=== PATIENT | female | born 1985 | race Caucasian/White ===

== ENCOUNTER → 2018-07-10 | Outpatient (CLI) | payer BC ==
[2018-07-10 11:00] LABS: Basophils # (A) 0.1 k/uL (0-0.2); Basophils % (A) 1 %; Eosinophils # (A) 0.2 k/uL (0-0.7); Eosinophils % (A) 2 %; HCT 36.2 % (34.0-46.0); HGB 11.3 gm/dL (11.4-16.0); Hypochromasia Moderate; Lymphocytes # (A) 2.3 k/uL (1.0-4.8); Lymphocytes % (A) 23 %; MCH 23.1 pg (25.0-35.0); MCHC 31.1 g/dL (31.0-37.0); Mean Platelet Volume 6.8; Microcytosis Slight; Monocytes # (A) 0.3 k/uL (0-1.0); Monocytes % (A) 3 %; Neutrophils # (A) 7.2 k/uL (1.3-7.7); Neutrophils % (A) 71 %; Platelet Count 359 k/uL (150-450); RBC 4.89 m/uL (3.80-5.40); RDW 15.5 % (11.5-15.5); WBC 10.1 k/uL (3.8-10.6)
== END | disposition home or self-care (01) ==
LOC: LABPAT 10:09
PROVIDERS: ATTEND Obstetrics & Gynecology Obstetrics
DX: Z01.812 Encounter for preprocedural laboratory examination (principal); N92.0 Excessive and frequent menstruation with regular cycle
CPT/HCPCS: 36415; 85025

== ENCOUNTER → 2018-07-18 | Day surgery (SDC) | payer BC ==
[2018-07-13 11:32] VITALS: BMI 39.6
[~2018-07-18] MED LIST: DEXAMETHASONE SOD PHOSPHATE 10 MG/ML 1 ML VIAL IV ONE; HYDROmorphone 0.5 MG/0.5 ML SYRINGE IVP PRN; KETOROLAC 30 MG/ML 1 ML VIAL IVP ONE; LACTATED RINGERS 1,000 ML IV ONE; LACTATED RINGERS 1,000 ML IV SCH; LIDOCAINE 1% 20 ML VIAL (10MG/ML) FOR IV START INTRADERMA ONE; LIDOCAINE 1% INJ 10MG/ML (20 ML MDV) ONE; MIDAZOLAM (PF) 2 MG/2 ML VIAL IV PRN; MIDAZOLAM 2 MG/2 ML VIAL ONE; ONDANSETRON 4 MG/2 ML VIAL IVP ONE; PROPOFOL 10 MG/ML 20 ML VIAL IV ONE; Pre Op ABX Message 1 EACH MISC MISCELLANE ONE; SCOPOLAMINE 1.5MG/72HR PATCH TRANSDERM ONE; fentaNYL (PF) 50 MCG/ML 2 ML AMP ONE
--- NOTE | 2018-07-18 13:24 | P.OP ---
Date of Procedure: 07/18/18 Preoperative Diagnosis: Menorrhagia, failed medical management. Anemia Postoperative Diagnosis: Same Procedure(s) Performed: Hysteroscopy, dilation and curettage, and ablation with NovaSure. Anesthesia: MAC Surgeon: Paula Ayala Estimated Blood Loss (ml): 5 IV fluids (ml): 400 Urine output (ml): 200 Pathology: other (Endometrial curettings) Condition: stable Indications for Procedure: Heavy menstrual bleeding Operative Findings: Normal-appearing and endometrial cavity, length of 6, width of 3.7, power for the procedure 122 for a total 45 seconds. Description of Procedure: Patient seen in the preoperative area and informed consent is obtained. Given that she has failed medical management she wishes to proceed. Patient was taken operating suite where general anesthesia was obtained without difficulty by the anesthesia department. She was then prepped and draped in the normal sterile fashion in the dorsal lithotomy position. A right upper catheter was then used to drain the bladder of clear yellow urine. A weighted speculum was placed in the posterior vaginal vault the anterior lip of the cervix is visualized and grasped with a single-tooth tenaculum. Endocervical canal was then dilated to 16-Spanish. Hysteroscope was placed through the cervix and toward the endometrium Cavity was noted a proliferative endometrium was visualized. Hysteroscope was removed and sharp curettage was performed the specimen was then sent to pathology for analysis. The NovaSure device was then opened and operated according to bus driver's instruction. After the cavity assessment was completed the cycle was allowed to occur at a power of 122 for a total of 45 seconds. Afterwards the device was removed without difficulty the single tooth tenaculum was taken off of the anterior lip of the cervix and hemostasis was appreciated. All counts were correct 2 patient tolerated procedure well was taken the recovery room awake and in stable condition.
[2018-07-18 13:42] VITALS: TEMP 98
[2018-07-18 14:54] VITALS: PULSE 58; RESP 18
[2018-07-18 15:12] VITALS: BP 116/84
== END | disposition home or self-care (01) ==
LOC: OR 11:01
PROVIDERS: ATTEND Obstetrics & Gynecology Obstetrics
DX: N92.0 Excessive and frequent menstruation with regular cycle (principal); N72 Inflammatory disease of cervix uteri; D64.9 Anemia, unspecified; K21.9 Gastro-esophageal reflux disease without esophagitis; Z79.899 Other long term (current) drug therapy; Z79.1 Long term (current) use of non-steroidal anti-inflammatories (NSAID); Z79.890 Hormone replacement therapy; Z98.51 Tubal ligation status; Z91.030 Bee allergy status
CPT/HCPCS: 81025; 88305; 58563; J2250; J1100; J2405; J2001; J3010; J1885; J2704

== ENCOUNTER → 2019-10-16 | Outpatient (CLI) | payer OTHER ==
--- NOTE | 2019-10-16 12:19 | XR ---
EXAMINATION TYPE: AP view pelvis and 2 views left hip XR knee complete 3 views LT, XR ankle complete 3 views LT DATE OF EXAM: 10/16/2019 COMPARISON: NONE HISTORY: 34-year-old female S73.102A S80.02XA S93.402A. Pain after slip and fall. FINDINGS: Pelvis and left hip: There is mild degenerative spurring at the left hip. Small anterior femoral head neck junction osseou s excrescence. No acute fracture, subluxation, or dislocation. Left knee: Minimal marginal spurring medial and patellofemoral compartments. Extensor mechanism is intact. No kn ee joint effusion. No acute fracture, subluxation, or dislocation. Left ankle: Ankle mortise is congruent with preservation of the distal tibia-fibula overlap. Talar dome is intact . Small posterior calcaneal spur. No acute fracture, subluxation, or dislocation. IMPRESSION: 1. Pelvis and left hip: Mild left hip OA. There is a femoral head neck junction osseous excrescence w hich can contribute to CAM-type femoral acetabular impingement syndrome. 2. Left knee: Mild degenerative spurring in the medial and patellofemoral compartments. No acute osse ous abnormality seen. 3. Left ankle: No acute osseous abnormality seen.
== END | disposition home or self-care (01) ==
LOC: RADXRMAIN 11:39
PROVIDERS: ATTEND Emergency Medicine
DX: M16.12 Unilateral primary osteoarthritis, left hip (principal); M17.12 Unilateral primary osteoarthritis, left knee; S93.402A Sprain of unspecified ligament of left ankle, initial encounter
CPT/HCPCS: 73502

== ENCOUNTER → 2019-11-17 | Outpatient (CLI) | payer OTHER ==
--- NOTE | 2019-11-17 11:47 | XR ---
EXAMINATION TYPE: XR lumbar spine 2 or 3V DATE OF EXAM: 11/17/2019 CLINICAL HISTORY: pain TECHNIQUE: Three views of the lumbar spine are submitted. COMPARISON: None. FINDINGS: There are 5 lumbar type vertebral bodies identified. The lumbar spine shows satisfactory alignment w ithout evidence of acute fracture or dislocation. Vertebral body heights are within normal limits. Moderate degenerative disc space narrowing L4-5 and L5-S1. The overlying soft tissue appears unremar kable. IMPRESSION: No acute fracture or dislocation is seen in the lumbar spine. ICD 10 NO FRACTURE, INITIAL EVALUATION
== END | disposition home or self-care (01) ==
LOC: RADXRMAIN 11:19
PROVIDERS: ATTEND Emergency Medicine
DX: M53.3 Sacrococcygeal disorders, not elsewhere classified (principal); S73.102D Unspecified sprain of left hip, subsequent encounter; Z98.890 Other specified postprocedural states
CPT/HCPCS: 72100

== ENCOUNTER → 2022-07-20 | Day surgery (SDC) | payer BC, OTHER ==
--- NOTE | 2022-07-26 10:08 | MM ---
Reason for Exam: Post Procedure Mammogram. Last mammogram was performed 4 year(s) and 3 month(s) ago. Patient History: Bilateral Reduction. Risk Values: Heidi 5 year model risk: 0.3%. NCI Lifetime model risk: 6.7%. Prior Study Comparison: 04/13/2018 Bilateral Screening Mammogram, [facility]. 07/07/2022 Right Diagnostic Ultrasound, [facility]. Tissue Density: Right: The breast tissue is heterogeneously dense. This may lower the sensitivity of mammography. Pathology Description: Location: retroareolar. Marker Left Behind. Needle Type: [place] Cores: 4 Gauge: 12 The procedure of ultrasound guided core biopsy was explained to the patient. Benefits, alternatives, and risks were discussed. An informed consent was then obtained. The patient was placed in supine positioning for imaging and for the procedure. The overlying skin was prepped and draped in usual sterile fashion. Lidocaine buffered with bicarbonate was used as anesthetic into the skin and subcutaneous tissue up to area of concern in the 12:00 periareolar breast. A cara was made with surgical scalpel. Under ultrasound guidance, a 12-gauge vacuum assisted biopsy gun device was used to obtain 4 core samples. Following this, a biopsy clip was left in lesion. The patient tolerated the procedure well without any immediate complication. The patient was kept in the radiology department for short stay after the procedure and then discharged home in stable condition. Postprocedure mammogram: The patient was transferred to mammography for physician ordered post procedure mammogram for clip placement verification. Impression: Successful, uncomplicated ultrasound guided core biopsy of area of concern in the 12:00 periareolar breast breast, full pathology results to follow. Pathology Results: Result: Benign, Fat necrosis. RIGHT BREAST, POSTERIOR NIPPLE, NEEDLE CORE BIOPSY: Calcified fat necrosis/scar with chronic inflammation and hemosiderin laden histiocytes. Negative for malignancy. Overall Assessment: Benign Assessment: MG diagnostic mammo RT wo CAD - Right: Benign, BI-RAD 2. Management: Diagnostic Breast Ultrasound of the right breast in 6 months. Electronically signed and approved by: Chito Mendez M.D. Radiologis
== END ==
LOC: RADUSWWP 07:43
PROVIDERS: ATTEND Surgery
DX: N64.1 Fat necrosis of breast (principal); N61.0 Mastitis without abscess
CPT/HCPCS: 88305; 77065; 19083; A4648

== ENCOUNTER → 2022-08-04 | Outpatient (CLI) | payer OTHER ==
[2022-08-04 08:18] VITALS: BP 127/89; PULSE 73; RESP 16; TEMP 97.6
--- NOTE | 2022-08-04 08:41 | P.GSHP ---
History of Present Illness H&P Date: 08/04/22 Chief Complaint: fat necrosis right breast Marisela is a 37 year old white female seen in consultation for Dr. Morgan regarding a biopsy of the right breast showing calcified fat necrosis and scar. She had an initial ultrasound of the right breast [id number]. This revealed a 2.6 x 2.7 cm hypoechoic solid lesion felt to represent a possible hematoma in the area of palpable abnormality in the breast. This was considered BIRADS 3 and 3 month follow-up was recommended. On she had an ultrasound of the right breast showing a 3.1 x 2.9 cm retroareolar hypoechoic solid nodule. A core biopsy was recommended. This was performed at [facility] on . P athology revealed fat necrosis and scar. No recent radiographs have been done of the left breast. Her last bilateral mammogram was in 2019 prior to a breast reduction. That did not show anything of concern. The patient feels some nodularity in her right breast in the area seen on mammogram since her breast reduction which was in 2019. She is not complaining of any nipple discharge or skin changes. She has not had any recent trauma of the breast. She did have an infection extending from the nipple laterally in the right breast. It was red and swollen. She was treated with antibiotics. She did not have fever or chills. She is not certain as to what initiated the infection. She is doing well at this time with resolution. She does not have sensation in the areolar complex. She was reduced from a size 32H to a 36D now. Caffeine: 1 pop/day; used to drink 4 20OZ bottles /day until last week nicotine: none chocolate: occasional BCP: 5 years, stopped 2014 Family History: maternal grandmother: breast cancer ? stomach cancer and skin cancer maternal uncle, not sure she is adopted Hormonal History: menarche: 10 M1, breast fed: no, age at first : 22 periods irregular LMP: 2 weeks ago Surgical history: tonsil 2 C-sections gallbladder bresat reductioin tubaligation uterine ablation Medical history: diabetic Social History: Nicotine: Negative Alcohol: Occasional Drugs: Negative - Constitutional Constitutional: Denies chills, Denies fever - EENT Eyes: bilateral blurred vision Ears: bilateral: decreased hearing Ears, nose, mouth and throat: Denies headache, Denies sore throat - Breasts Breasts: bilateral: as per HPI - Cardiovascular Cardiovascular: Denies chest pain, Denies shortness of breath - Respiratory Respiratory: Denies cough, Denies 7 - Gastrointestinal Gastrointestinal: Denies abdominal pain, Denies diarrhea, Denies nausea, Denies vomiting - Genitourinary (Female) Genitourinary: Denies dysuria, Denies hematuria - Menstruation Menstruation: Reports as per HPI - Musculoskeletal Musculoskeletal: Reports myalgias - Integumentary Integumentary: Denies pruritus, Denies rash - Neurological Neurological: Denies numbness, Denies weakness - Psychiatric Psychiatric: Reports anxiety, Reports depression - Endocrine Comment: diabetic - Hematologic/Lymphatic Comment: none - Allergic/Immunologic Allergic/Immunologic: Reports seasonal allergies Past Medical History Past Medical History: Diabetes Mellitus, Musculoskeletal Disorder Additional Past Medical History / Comment(s): chronic low & mid back pain, Type 2 DM History of Any Multi-Drug Resistant Organisms: None Reported Past Surgical History: Adenoidectomy, Breast Surgery, Section, Tonsillectomy, Tubal Ligation, Uterine Ablation Additional Past Surgical History / Comment(s): C/S x2. Breast reduction 2019 Past Anesthesia/Blood Transfusion Reactions: No Reported Reaction Past Psychological History: Anxiety Smoking Status: Former smoker Past Alcohol Use History: Occasional Additional Past Alcohol Use History / Comment(s): quit smoking 2004,only smoked for 6 months Past Drug Use History: None Reported - Past Family History Mother Family Medical History: No Reported History Medications and Allergies Home Medications Medication Instructions Recorded Confirmed Type Ibuprofen [Motrin] 800 mg PO Q6H PRN 07/13/18 08/04/22 History ALPRAZolam [Xanax] 0.25 mg PO DAILY PRN 07/09/22 08/04/22 History Cyclobenzaprine [Flexeril] 10 mg PO HS 07/09/22 08/04/22 History Dulaglutide [Trulicity] 3 ml SQ WEEKLY 07/09/22 08/04/22 History INSULIN LISPRO (humaLOG) [humaLOG] 10 units SQ TID 07/12/22 08/04/22 History Insulin Glargine [Lantus Vial] 25 unit SQ DAILY 07/12/22 08/04/22 History Allergies Allergy/AdvReac Type Severity Reaction Status Date / Time bee pollen Allergy Anaphylaxis Verified 08/04/22 08:15 bee venom protein (honey bee) Allergy Swelling Unverified 08/04/22 08:15 adhesive tape AdvReac Rash/Hives Verified 08/04/22 08:15 Surgical - Exam Vital Signs Temp Pulse Resp BP Pulse Ox 97.6 F 73 16 127/89 99 08/04/22 08:16 08/04/22 08:16 08/04/22 08:16 08/04/22 08:16 08/04/22 08:16 - General no distress - Eyes normal ocular movement - ENT no hearing loss, no congestion - Neck trachea midline - Respiratory normal respiratory effort, clear to auscultation - Cardiovascular Rhythm: regular Heart Sounds: normal: S1, S2 - Abdomen Abdomen: soft, non tender, no guarding, no rigid, no rebound - Integumentary normal turgor - Neurologic no disoriented, no combative - Musculoskeletal normal gait - Psychiatric oriented to time, oriented to person, oriented to place, speech is normal, memory intact Breast Exam: BRA: 46D Inspection: Tattoo right breast Palpation: Right breast: Well-healed scars from prior surgery, nodularity behind the nipple areolar complex consistent with the area which was biopsied felt to be fat necrosis related to prior reduction mammoplasty Right axilla: No adenopathy of concern Left breast: Multiple positional exam well-healed scars from prior reduction mammoplasty, no dominant masses or nodules of concern Left axilla: No adenopathy of concern Results Right breast mammogram and ultrasound reviewed Assessment and Plan Assessment: Impression: Fat necrosis right breast related to prior reduction mammoplasty no evidence of cancer. Plan: Bilateral mammogram in 6 months with physician exam at that time Patient to follow up sooner any questions or concerns Cc: Dr. Morgan
== END ==
LOC: WWCWWP 08:03
PROVIDERS: ATTEND Surgery
DX: N63.41 Unspecified lump in right breast, subareolar (principal); E11.9 Type 2 diabetes mellitus without complications; Z79.4 Long term (current) use of insulin; Z80.3 Family history of malignant neoplasm of breast; Z87.891 Personal history of nicotine dependence; Z91.030 Bee allergy status; Z91.09 Other allergy status, other than to drugs and biological substances